=== PATIENT | female | born 1960 | race Caucasian/White ===

== ENCOUNTER 2020-03-13 14:22 | Emergency (ER) | payer BC ==
[~2020-03-13] VITALS: Ht 160 cm; Wt 120.5 kg
[2020-03-13 14:33] VITALS: BP 143/82; TEMP 98.7
[2020-03-13] MEDS ORDERED: PRINIVIL5 MG PO (15:00)
[2020-03-13] MEDS ORDERED: K-DUR20 MEQ PO (15:00)
[2020-03-13] MEDS ORDERED: LASIX 20MG TABL20 MG PO (15:00)
[2020-03-13] MEDS ORDERED: NEB MC (15:01)
[2020-03-13] MEDS ORDERED: 00186-0372-20 IH (15:01)
[2020-03-13] MEDS ORDERED: PROAIR HFA0.09 MG/AC IH (15:01)
[2020-03-13] MEDS ORDERED: MAGNESIUM200 MG PO (15:01)
[2020-03-13] MEDS ORDERED: ASPIRIN 81M81 MG/TA2 PO (15:10)
[2020-03-13] MEDS ORDERED: 00186-0370-20 IH (15:13)
[2020-03-13] MEDS ORDERED: ZESTRIL 20MG TA20 MG PO (15:13)
[2020-03-13] MEDS ORDERED: SPIRIVA RE2.5 MCG/Ac IH (15:14)
[2020-03-13] MEDS ORDERED: K-DUR 10 MEQ T10 MEQ PO (15:15)
[2020-03-13] MEDS ORDERED: OMNICEF 300MG300 MG PO (15:35)
[2020-03-13] MEDS ORDERED: DOXYCYCLINE 10100 MG PO (15:37)
[2020-03-13 15:59] VITALS: PULSE 77
== END 2020-03-13 16:00 | disposition home or self-care (01) ==
LOC: COL.ER 14:22
DX: M79.671 Pain in right foot (principal); M79.674 Pain in right toe(s); J44.9 Chronic obstructive pulmonary disease, unspecified; Z88.8 Allergy status to other drugs, medicaments and biological substances; Z79.82 Long term (current) use of aspirin; Z79.51 Long term (current) use of inhaled steroids